=== PATIENT | female | born 1955 | race Hispanic/Latino ===

== ENCOUNTER 2018-09-10 11:06 | Outpatient (CLI) | payer OTHER | END 2018-09-10 11:07 | disposition home or self-care (01) | LOC: BICMAMMO 11:06 | PROVIDERS: ATTEND Family Medicine | DX: Z12.31 Encounter for screening mammogram for malignant neoplasm of breast (principal) | CPT/HCPCS: 77063; 77067 ==

== ENCOUNTER 2024-12-24 07:19 | Emergency (ER) | payer OTHER ==
[2024-12-24 08:12] LABS: #Basophils Less than 0.03 10x3/uL (0.0-0.2); #Eosinophils Less than 0.03 10x3/uL (0.0-0.7); %Basophils 0.1 % (0.0-1.0); %Eosinophils 0.1 % (0.0-10.0); %Lymphocytes 7.3 % (21.0-51.0); %Neutrophils 88.3 % (42.0-75.0); Hemoglobin 9.2 g/dL (12.0-16.0); Mean Corpuscular HGB CONC 32.9 g/dL (32.0-36.0); Mean Corpuscular Hemoglobin 30.2 pg (27.0-31.0); Mean Corpuscular Volume 91.8 fL (78.0-98.0); Mean Platelet Volume 10.5 fL (7.4-10.4); Platelet Count 133 10x3/uL (130-400); RBC Distribution Width 14.3 % (11.5-14.5); Red Blood Cell (RBC) Count 3.05 mill/uL (4.20-5.40)
[2024-12-24 09:01] LABS: ALT (SGPT) 23 U/L (Less than 34); AST (SGOT) 35 U/L (11-34); Albumin 3.4 g/dL (3.1-4.5); Alkaline Phosphatase 116 U/L (40-110); Anion Gap 17 mmol/L (10-20); BUN (Urea Nitrogen) 49 mg/dL (9.8-20.1); Bilirubin, Total 0.6 mg/dL (0.3-1.2); Calc. Creatinine Clearance 0 mL/min (70-130); Calcium 8.9 mg/dL (7.8-10.44); Carbon Dioxide 18 mmol/L (23-31); Chloride 109 mmol/L (98-107); Estimated GFR 30; Globulin 3.7 g/dL (2.4-3.5); Glucose 304 mg/dL (80-115); Potassium 5.6 mmol/L (3.5-5.1); Protein, Total 7.1 g/dL (5.8-8.1); Sodium 138 mmol/L (136-145)
[2024-12-24] MEDS ORDERED: LOKELMA 10 GM PACKET PO SCH (10:45)
== END 2024-12-24 12:29 | disposition home or self-care (01) ==
LOC: ERS 07:19
DX: K92.0 Hematemesis (principal); R05.9 Cough, unspecified; E11.9 Type 2 diabetes mellitus without complications; E78.5 Hyperlipidemia, unspecified; I10 Essential (primary) hypertension; E03.9 Hypothyroidism, unspecified; Z79.84 Long term (current) use of oral hypoglycemic drugs; Z79.890 Hormone replacement therapy; Z79.899 Other long term (current) drug therapy
CPT/HCPCS: 74177; 80053; 85025; 93005; 96360

== ENCOUNTER 2025-06-05 11:35 | Inpatient (IN) | payer OTHER ==
[2025-06-05 12:48] LABS: Bacteria/HPF 2+ HPF (None Seen); CAUTI Indications for Culture Pelvic or flank pain; Glucose, Urine (Dipstick) Normal (Negative); Leukocyte 500 Leu/uL (Negative); Protein, Urine (Dipstick) 30 mg/dL (Neg-Trace); Specific Gravity, Urine 1.024 (1.002-1.036); WBC/HPF Greater than 50 HPF (0-3); Yeast-Budding 2+ HPF (None Seen)
[2025-06-05 12:49] LABS: Urine Culture Reflex Yes Yes
[2025-06-05] MEDS ORDERED: cefTRIAXone (ROCEPHIN) 1 GM VIAL ONE (13:10)
[2025-06-05 13:36] LABS: #Basophils Less than 0.03 10x3/uL (0.0-0.2); #Eosinophils 0.19 10x3/uL (0.0-0.7); #Monocytes 0.51 10x3/uL (0.11-0.59); #Neutrophils 4.33 10x3/uL (1.40-6.50); %Basophils 0.2 % (0.0-1.0); %Eosinophils 3.1 % (0.0-10.0); %Lymphocytes 17.5 % (21.0-51.0); %Monocytes 8.3 % (0.0-10.0); %Neutrophils 70.6 % (42.0-75.0); Hematocrit 34.1 % (36.0-47.0); Hemoglobin 11.7 g/dL (12.0-16.0); Mean Corpuscular Hemoglobin 30.8 pg (27.0-31.0); Mean Corpuscular Volume 89.7 fL (78.0-98.0); Platelet Count 116 10x3/uL (130-400); Red Blood Cell (RBC) Count 3.80 mill/uL (4.20-5.40); White Blood Cell (WBC) Count 6.13 10x3/uL (4.8-10.8)
[2025-06-05 13:44] LABS: INR-International Normal Ratio 1.2; Prothrombin Time 15.0 sec (12.0-14.7)
[2025-06-05 13:45] LABS: PTT 33.2 sec (22.9-36.1)
[2025-06-05 13:58] LABS: Troponin I Less than 0.010 ng/mL (< 0.028)
[2025-06-05 14:19] LABS: ALT (SGPT) 45 U/L (Less than 34); AST (SGOT) 65 U/L (11-34); Albumin 3.6 g/dL (3.1-4.5); Alkaline Phosphatase 247 U/L (40-110); Anion Gap 15 mmol/L (10-20); BUN (Urea Nitrogen) 25 mg/dL (9.8-20.1); Bilirubin, Total 1.2 mg/dL (0.3-1.2); Calc. Creatinine Clearance 0 mL/min (70-130); Calcium 8.8 mg/dL (7.8-10.44); Carbon Dioxide 21 mmol/L (23-31); Chloride 112 mmol/L (98-107); Globulin 4.1 g/dL (2.4-3.5); Glucose 67 mg/dL (80-115); Lipase 45 U/L (8-78); Potassium 4.9 mmol/L (3.5-5.1); Sodium 143 mmol/L (136-145)
[2025-06-05] MEDS ORDERED: Furosemide 40 MG (4 mL) VIAL ONE (15:37)
[2025-06-05 17:12] VITALS: BMI 34.7
[2025-06-05] MEDS ORDERED: Ondansetron PF 4 MG/2 ML Vial IVP PRN (18:06)
[2025-06-05] MEDS ORDERED: Acetaminophen 500 MG TAB PO PRN (18:06)
[2025-06-05] MEDS ORDERED: Glucagon 1 MG/ML KIT IM PRN (18:06)
[2025-06-05] MEDS ORDERED: Dextrose 50% Abboject 50 ML SYRINGE SLOW IVP PRN (18:06)
[2025-06-05] MEDS: Furosemide 20 MG (2 mL) VIAL SLOW IVP SCH (19:38)
[2025-06-05] MEDS: Albumin 25% 25 GM (100 mL) BOT IVPB SCH ×2 (19:39→23:31)
[2025-06-05] MEDS: Spironolactone 25 MG TAB PO SCH (19:39)
[2025-06-06] MEDS: Furosemide 20 MG (2 mL) VIAL SLOW IVP SCH (05:15)
[2025-06-06] MEDS: Spironolactone 25 MG TAB PO SCH (08:57)
[2025-06-06] MEDS: Pantoprazole 40 MG VIAL IVP SCH (08:58)
[2025-06-06] MEDS ORDERED: Lidocaine 1% w/Epinephrine 1:100K 20 ML VIAL ONE (09:41)
[2025-06-06] MEDS ORDERED: Sodium Bicarbonate 2.5 MEQ/5 ML SDV ONE (09:41)
[2025-06-06] MEDS ORDERED: Lidocaine 1% PF 5 ML VIAL ONE (09:41)
[2025-06-06] MEDS: cefTRIAXone\\ROCEPHIN 1 GM in Sodium Chloride 0.9% 100 ML IVPB SCH (12:57)
[2025-06-06] MEDS ORDERED: Non-Formulary Item 1 EACH (Nifedipine [Nifedipine Er] 30 MG Tablet.Er) PO SCH (13:30)
[2025-06-06] MEDS: PNEUMOC 20-VAL CONJ-DIP CRM/PF 0.5 ML SYRINGE IM ONE (13:42)
[2025-06-06 14:03] LABS: RBC Count-Automated (BF) 382 /cu.mm; WBC/Nucleated-Auto (BF) 206 /cu.mm
[2025-06-06 14:26] LABS: BF Segmented Neutrophils 2 %; Cell Count Non Hematic 22 %
[2025-06-06] MEDS: NIFEdipine XL 30 MG ER.TAB PO SCH (14:42)
[2025-06-06 14:53] LABS: #Basophils Less than 0.03 10x3/uL (0.0-0.2); #Eosinophils 0.08 10x3/uL (0.0-0.7); #Monocytes 0.33 10x3/uL (0.11-0.59); #Neutrophils 2.42 10x3/uL (1.40-6.50); %Basophils 0.3 % (0.0-1.0); %Eosinophils 2.3 % (0.0-10.0); %Lymphocytes 18.1 % (21.0-51.0); %Monocytes 9.5 % (0.0-10.0); %Neutrophils 69.5 % (42.0-75.0); Hematocrit 30.7 % (36.0-47.0); Hemoglobin 10.2 g/dL (12.0-16.0); Mean Corpuscular Hemoglobin 30.4 pg (27.0-31.0); Mean Corpuscular Volume 91.4 fL (78.0-98.0); Platelet Count 78 10x3/uL (130-400); Red Blood Cell (RBC) Count 3.36 mill/uL (4.20-5.40); White Blood Cell (WBC) Count 3.48 10x3/uL (4.8-10.8)
[2025-06-06 15:06] LABS: ALT (SGPT) 32 U/L (Less than 34); AST (SGOT) 39 U/L (11-34); Albumin 4.4 g/dL (3.1-4.5); Alkaline Phosphatase 192 U/L (40-110); Anion Gap 17 mmol/L (10-20); BUN (Urea Nitrogen) 21 mg/dL (9.8-20.1); Bilirubin, Total 1.3 mg/dL (0.3-1.2); Calc. Creatinine Clearance 43 mL/min (70-130); Calcium 9.1 mg/dL (7.8-10.44); Carbon Dioxide 24 mmol/L (23-31); Chloride 106 mmol/L (98-107); Globulin 3.1 g/dL (2.4-3.5); Glucose 136 mg/dL (80-115); Potassium 3.9 mmol/L (3.5-5.1); Sodium 143 mmol/L (136-145)
[2025-06-06 15:30] LABS: Ovalocytes SLIGHT = 2-5 cells HPF (0-1); Platelet Adequacy Comment Platelets Decreased; Polychromasia MODERATE = 3-4 cells HPF (0-2)
[2025-06-06] MEDS: Nadolol 40 MG TAB PO SCH (17:04)
[2025-06-06] MEDS ORDERED: NIFEdipine XL 30 MG ER.TAB PO SCH (21:00)
[2025-06-06] MEDS ORDERED: Nadolol 40 MG TAB PO SCH (21:00)
[2025-06-06] MEDS ORDERED: Simvastatin 20 MG TAB PO SCH (21:00)
[2025-06-06] MEDS ORDERED: Non-Formulary Item 1 EACH (Nadolol [Nadolol] 20 MG Tablet) PO SCH (21:00)
[2025-06-07 05:16] LABS: #Basophils Less than 0.03 10x3/uL (0.0-0.2); #Eosinophils 0.11 10x3/uL (0.0-0.7); #Monocytes 0.35 10x3/uL (0.11-0.59); #Neutrophils 2.65 10x3/uL (1.40-6.50); %Basophils 0.3 % (0.0-1.0); %Eosinophils 2.9 % (0.0-10.0); %Lymphocytes 18.5 % (21.0-51.0); %Monocytes 9.1 % (0.0-10.0); %Neutrophils 68.9 % (42.0-75.0); Hematocrit 29.9 % (36.0-47.0); Hemoglobin 10.0 g/dL (12.0-16.0); Mean Corpuscular Hemoglobin 30.4 pg (27.0-31.0); Mean Corpuscular Volume 90.9 fL (78.0-98.0); Platelet Count 80 10x3/uL (130-400); Red Blood Cell (RBC) Count 3.29 mill/uL (4.20-5.40); White Blood Cell (WBC) Count 3.84 10x3/uL (4.8-10.8)
[2025-06-07 05:34] LABS: Anion Gap 14 mmol/L (10-20); BUN (Urea Nitrogen) 22 mg/dL (9.8-20.1); Calc. Creatinine Clearance 38 mL/min (70-130); Calcium 8.6 mg/dL (7.8-10.44); Carbon Dioxide 27 mmol/L (23-31); Chloride 105 mmol/L (98-107); Glucose 115 mg/dL (80-115); Potassium 3.6 mmol/L (3.5-5.1); Sodium 142 mmol/L (136-145)
[2025-06-07] MEDS ORDERED: Non-Formulary Item 1 EACH (Levothyroxine Sodium [Synthroid] 137 MCG Tablet) PO SCH (09:00)
[2025-06-07] MEDS: Pantoprazole 40 MG DR.TAB PO SCH (09:55)
[2025-06-07] MEDS: NIFEdipine XL 30 MG ER.TAB PO SCH (20:36)
[2025-06-07] MEDS: Nadolol 40 MG TAB PO SCH (20:36)
[2025-06-08 03:36] VITALS: TEMP 98.2
[2025-06-08 06:50] LABS: Anion Gap 14 mmol/L (10-20); BUN (Urea Nitrogen) 30 mg/dL (9.8-20.1); Calc. Creatinine Clearance 33 mL/min (70-130); Calcium 8.6 mg/dL (7.8-10.44); Carbon Dioxide 27 mmol/L (23-31); Chloride 105 mmol/L (98-107); Glucose 130 mg/dL (80-115); Potassium 3.6 mmol/L (3.5-5.1); Sodium 142 mmol/L (136-145)
[2025-06-08 08:15] VITALS: BP 153/71
== END 2025-06-08 12:34 | disposition home or self-care (01) | DRG 433 ==
LOC: ERS 11:35 → UNDOADMOB 15:28 → OBS 15:28 → INTOOBSV 18:06 → OBSVTOIN 18:06 → UNDODISIN 06-08 12:34
PROVIDERS: ADMIT Family Medicine; ATTEND Family Medicine
PROC: 0W9G3ZZ Drainage of Peritoneal Cavity, Percutaneous Approach (ICD-10-PCS; principal; 2025-06-06)
PROC: 3E03329 Introduction of Other Anti-infective into Peripheral Vein, Percutaneous Approach (ICD-10-PCS; 2025-06-06)
DX: K74.60 Unspecified cirrhosis of liver (principal); N17.9 Acute kidney failure, unspecified; N39.0 Urinary tract infection, site not specified; R18.8 Other ascites; K75.81 Nonalcoholic steatohepatitis (NASH); R16.1 Splenomegaly, not elsewhere classified; E78.5 Hyperlipidemia, unspecified; N18.30 Chronic kidney disease, stage 3 unspecified; I12.9 Hypertensive chronic kidney disease with stage 1 through stage 4 chronic kidney disease, or unspecified chronic kidney disease; D63.1 Anemia in chronic kidney disease; D69.6 Thrombocytopenia, unspecified; E87.70 Fluid overload, unspecified; R74.01 Elevation of levels of liver transaminase levels; E11.21 Type 2 diabetes mellitus with diabetic nephropathy; E11.22 Type 2 diabetes mellitus with diabetic chronic kidney disease; E03.9 Hypothyroidism, unspecified; Z98.890 Other specified postprocedural states; Z79.890 Hormone replacement therapy; Z79.899 Other long term (current) drug therapy
CPT/HCPCS: 36415; 36416; 49083; 74176; 76705; 80048; 80053; 81001; 82042; 82105; 83605; 83690; 83880; 84157; 84484; 85025; 85060; 85610; 85730; 87070; 87086; 87205; 88112; 88305; 89051; 93005; 93306; 96365; 96375; G0378; J0696; J1815; J1940; J2470; P9047

== ENCOUNTER 2025-06-17 08:26 | Inpatient (IN) | payer OTHER ==
[2025-06-17] MEDS ORDERED: Ketorolac Tromethamine 30 MG (1 mL) VIAL ONE (09:07)
[2025-06-17 09:33] LABS: ALT (SGPT) 49 U/L (Less than 34); AST (SGOT) 47 U/L (11-34); Albumin 4.3 g/dL (3.1-4.5); Alkaline Phosphatase 217 U/L (40-110); Anion Gap 15 mmol/L (10-20); BUN (Urea Nitrogen) 35 mg/dL (9.8-20.1); Bilirubin, Total 1.5 mg/dL (0.3-1.2); Calc. Creatinine Clearance 0 mL/min (70-130); Calcium 9.4 mg/dL (7.8-10.44); Carbon Dioxide 23 mmol/L (23-31); Chloride 108 mmol/L (98-107); Globulin 3.0 g/dL (2.4-3.5); Glucose 96 mg/dL (80-115); Potassium 4.1 mmol/L (3.5-5.1); Sodium 142 mmol/L (136-145)
[2025-06-17 10:02] LABS: Burr Cells MODERATE= 6-15 cells HPF (0-1); Macrocytosis SLIGHT = 6-15 cells HPF (0-5); Ovalocytes SLIGHT = 2-5 cells HPF (0-1); Platelet Adequacy Comment Platelets Decreased; Polychromasia SLIGHT = 2-3 cells HPF (0-2); Smudge Cells 1.0 %
[2025-06-17 10:09] LABS: Hematocrit 35.2 % (36.0-47.0); Hemoglobin 11.8 g/dL (12.0-16.0); Mean Corpuscular Hemoglobin 29.9 pg (27.0-31.0); Mean Corpuscular Volume 89.1 fL (78.0-98.0); Platelet Count 105 10x3/uL (130-400); Red Blood Cell (RBC) Count 3.95 mill/uL (4.20-5.40); White Blood Cell (WBC) Count 9.05 10x3/uL (4.8-10.8)
[2025-06-17] MEDS ORDERED: [UNRECOGNIZED DRUG - REMARK] FS SCH (10:15)
[2025-06-17 10:40] LABS: INR-International Normal Ratio 1.3; Prothrombin Time 16.3 sec (12.0-14.7)
[2025-06-17 10:41] LABS: PTT 33.2 sec (22.9-36.1)
[2025-06-17] MEDS ORDERED: PROPOFOL 20 ML ONE (11:18)
[2025-06-17] MEDS ORDERED: Rocuronium Bromide 10 MG/ML (10ML VIAL) ONE ×2 (11:18→12:10)
[2025-06-17] MEDS ORDERED: Lidocaine 1% PF 5 ML VIAL ONE (11:18)
[2025-06-17] MEDS ORDERED: fentaNYL PF 100 MCG/2 ML SYRINGE ONE (12:10)
[2025-06-17] MEDS ORDERED: Lidocaine 2% 6 ML (Jelly) SYR ONE (12:13)
[2025-06-17] MEDS ORDERED: PHENYLEPHRINE-NS 100 MCG/ML 10 ML SYRINGE ONE (12:14)
[2025-06-17] MEDS ORDERED: CEFAZOLIN 1 GM VIAL ONE (13:11)
[2025-06-17] MEDS ORDERED: Glycopyrrolate 0.2 MG/ML 5 ML SYRINGE ONE (13:21)
[2025-06-17] MEDS ORDERED: SUGAMMADEX SODIUM 200 MG/2 ML VIAL ONE (14:13)
[2025-06-17] MEDS ORDERED: Dextrose 50% Abboject 50 ML SYRINGE SLOW IVP PRN (15:40)
[2025-06-17] MEDS ORDERED: Glucagon 1 MG/ML KIT IM PRN (15:40)
[2025-06-17] MEDS: Methocarbamol 500 MG TAB PO PRN (17:26)
[2025-06-17] MEDS: TETANUS, DIPHTHERIA TOX,ADULT (TDVAX) 0.5 ML VIAL IM ONE (17:27)
[2025-06-17 17:28] VITALS: BMI 29.6
[2025-06-17] MEDS: NIFEdipine XL 30 MG ER.TAB PO SCH (21:35)
[2025-06-17] MEDS: Pantoprazole 40 MG DR.TAB PO SCH (21:36)
[2025-06-17] MEDS: Spironolactone 25 MG TAB PO SCH (21:38)
[2025-06-17] MEDS: HYDROcodone/Acetaminophen 5/325 mg Tablet PO PRN (21:39)
[2025-06-17] MEDS: Nadolol 40 MG TAB PO SCH (21:50)
[2025-06-18 05:06] LABS: #Basophils Less than 0.03 10x3/uL (0.0-0.2); #Eosinophils Less than 0.03 10x3/uL (0.0-0.7); #Monocytes 0.67 10x3/uL (0.11-0.59); #Neutrophils 7.90 10x3/uL (1.40-6.50); %Basophils 0.1 % (0.0-1.0); %Eosinophils 0.0 % (0.0-10.0); %Lymphocytes 7.8 % (21.0-51.0); %Monocytes 7.2 % (0.0-10.0); %Neutrophils 84.4 % (42.0-75.0); Hematocrit 27.6 % (36.0-47.0); Hemoglobin 9.1 g/dL (12.0-16.0); Mean Corpuscular Hemoglobin 30.4 pg (27.0-31.0); Mean Corpuscular Volume 92.3 fL (78.0-98.0); Platelet Count 110 10x3/uL (130-400); Red Blood Cell (RBC) Count 2.99 mill/uL (4.20-5.40); White Blood Cell (WBC) Count 9.36 10x3/uL (4.8-10.8)
[2025-06-18 05:08] LABS: Anion Gap 17 mmol/L (10-20); BUN (Urea Nitrogen) 44 mg/dL (9.8-20.1); Calc. Creatinine Clearance 32 mL/min (70-130); Calcium 8.5 mg/dL (7.8-10.44); Carbon Dioxide 18 mmol/L (23-31); Chloride 107 mmol/L (98-107); Glucose 157 mg/dL (80-115); Potassium 4.9 mmol/L (3.5-5.1); Sodium 137 mmol/L (136-145)
[2025-06-18] MEDS ORDERED: Non-Formulary Item 1 EACH (Levothyroxine Sodium [Synthroid] 137 MCG Tablet) PO SCH (09:00)
[2025-06-18] MEDS: Ondansetron PF 4 MG/2 ML Vial IVP PRN (09:10)
[2025-06-18] MEDS: Aspirin 81 mg Enteric Coated Tablet PO SCH (09:10)
[2025-06-18] MEDS: Furosemide 20 MG TAB PO SCH (09:10)
[2025-06-19 08:10] LABS: Hematocrit 23.5 % (36.0-47.0); Hemoglobin 7.9 g/dL (12.0-16.0); Mean Corpuscular Hemoglobin 31.3 pg (27.0-31.0); Mean Corpuscular Volume 93.3 fL (78.0-98.0); Platelet Count 83 10x3/uL (130-400); Red Blood Cell (RBC) Count 2.52 mill/uL (4.20-5.40); White Blood Cell (WBC) Count 7.76 10x3/uL (4.8-10.8)
[2025-06-19] MEDS: Aspirin 81 mg Enteric Coated Tablet PO SCH (08:20)
[2025-06-19 08:24] LABS: Anion Gap 12 mmol/L (10-20); BUN (Urea Nitrogen) 50 mg/dL (9.8-20.1); Calc. Creatinine Clearance 28 mL/min (70-130); Calcium 8.2 mg/dL (7.8-10.44); Carbon Dioxide 20 mmol/L (23-31); Chloride 106 mmol/L (98-107); Glucose 175 mg/dL (80-115); Potassium 4.3 mmol/L (3.5-5.1); Sodium 134 mmol/L (136-145)
[2025-06-19 08:32] LABS: Macrocytosis SLIGHT = 6-15 cells HPF (0-5); Platelet Adequacy Comment Platelets Decreased; Polychromasia MODERATE = 3-4 cells HPF (0-2); RBC Morphology Within Normal Limits
[2025-06-19 08:33] LABS: #Basophils Less than 0.03 10x3/uL (0.0-0.2); #Eosinophils 0.09 10x3/uL (0.0-0.7); #Monocytes 0.75 10x3/uL (0.11-0.59); #Neutrophils 5.82 10x3/uL (1.40-6.50); %Basophils 0.3 % (0.0-1.0); %Eosinophils 1.3 % (0.0-10.0); %Lymphocytes 13.8 % (21.0-51.0); %Monocytes 9.7 % (0.0-10.0); %Neutrophils 74.7 % (42.0-75.0)
[2025-06-20 08:28] LABS: #Basophils Less than 0.03 10x3/uL (0.0-0.2); #Eosinophils 0.14 10x3/uL (0.0-0.7); #Monocytes 0.66 10x3/uL (0.11-0.59); #Neutrophils 4.29 10x3/uL (1.40-6.50); %Basophils 0.2 % (0.0-1.0); %Eosinophils 2.3 % (0.0-10.0); %Lymphocytes 17.4 % (21.0-51.0); %Monocytes 10.6 % (0.0-10.0); %Neutrophils 69.2 % (42.0-75.0); Hematocrit 23.9 % (36.0-47.0); Hemoglobin 7.6 g/dL (12.0-16.0); Mean Corpuscular Hemoglobin 29.7 pg (27.0-31.0); Mean Corpuscular Volume 93.4 fL (78.0-98.0); Platelet Count 84 10x3/uL (130-400); Red Blood Cell (RBC) Count 2.56 mill/uL (4.20-5.40); White Blood Cell (WBC) Count 6.20 10x3/uL (4.8-10.8)
[2025-06-20] MEDS: Senokot S 8.6-50 MG TAB PO SCH (08:40)
[2025-06-20 08:41] LABS: Anion Gap 12 mmol/L (10-20); BUN (Urea Nitrogen) 45 mg/dL (9.8-20.1); Calc. Creatinine Clearance 33 mL/min (70-130); Calcium 8.2 mg/dL (7.8-10.44); Carbon Dioxide 21 mmol/L (23-31); Chloride 108 mmol/L (98-107); Glucose 224 mg/dL (80-115); Potassium 4.2 mmol/L (3.5-5.1); Sodium 137 mmol/L (136-145)
[2025-06-20 10:13] LABS: Ovalocytes SLIGHT = 2-5 cells HPF (0-1); Platelet Adequacy Comment Platelets Decreased; Polychromasia SLIGHT = 2-3 cells HPF (0-2)
[2025-06-22] MEDS: Lactulose 20 GM (30 mL) UDCUP PO SCH (08:22)
[2025-06-22 11:27] LABS: #Basophils Less than 0.03 10x3/uL (0.0-0.2); #Eosinophils 0.20 10x3/uL (0.0-0.7); #Monocytes 0.66 10x3/uL (0.11-0.59); #Neutrophils 5.66 10x3/uL (1.40-6.50); %Basophils 0.3 % (0.0-1.0); %Eosinophils 2.7 % (0.0-10.0); %Lymphocytes 12.7 % (21.0-51.0); %Monocytes 8.8 % (0.0-10.0); %Neutrophils 75.1 % (42.0-75.0); Hematocrit 26.5 % (36.0-47.0); Hemoglobin 8.7 g/dL (12.0-16.0); Mean Corpuscular Hemoglobin 31.0 pg (27.0-31.0); Mean Corpuscular Volume 94.3 fL (78.0-98.0); Platelet Count 180 10x3/uL (130-400); Red Blood Cell (RBC) Count 2.81 mill/uL (4.20-5.40); White Blood Cell (WBC) Count 7.53 10x3/uL (4.8-10.8)
[2025-06-22 11:32] VITALS: BMI 29.6
[2025-06-22 12:18] LABS: ALT (SGPT) 9 U/L (Less than 34); AST (SGOT) 26 U/L (11-34); Albumin 3.2 g/dL (3.1-4.5); Alkaline Phosphatase 203 U/L (40-110); Anion Gap 16 mmol/L (10-20); BUN (Urea Nitrogen) 34 mg/dL (9.8-20.1); Bilirubin, Total 1.8 mg/dL (0.3-1.2); Calc. Creatinine Clearance 36 mL/min (70-130); Calcium 9.1 mg/dL (7.8-10.44); Carbon Dioxide 22 mmol/L (23-31); Chloride 105 mmol/L (98-107); Globulin 3.4 g/dL (2.4-3.5); Glucose 229 mg/dL (80-115); Potassium 4.5 mmol/L (3.5-5.1); Sodium 138 mmol/L (136-145)
[2025-06-22] MEDS: Bisacodyl 10 MG SUPP PR PRN (20:32)
[2025-06-22] MEDS: Acetaminophen 325 MG TAB PO PRN (20:33)
[2025-06-23 07:32] LABS: #Basophils Less than 0.03 10x3/uL (0.0-0.2); #Eosinophils 0.06 10x3/uL (0.0-0.7); #Monocytes 1.02 10x3/uL (0.11-0.59); #Neutrophils 7.69 10x3/uL (1.40-6.50); %Basophils 0.2 % (0.0-1.0); %Eosinophils 0.6 % (0.0-10.0); %Lymphocytes 11.1 % (21.0-51.0); %Monocytes 10.3 % (0.0-10.0); %Neutrophils 77.4 % (42.0-75.0); Hematocrit 25.7 % (36.0-47.0); Hemoglobin 8.3 g/dL (12.0-16.0); Mean Corpuscular Hemoglobin 30.9 pg (27.0-31.0); Mean Corpuscular Volume 95.5 fL (78.0-98.0); Platelet Count 147 10x3/uL (130-400); Red Blood Cell (RBC) Count 2.69 mill/uL (4.20-5.40); White Blood Cell (WBC) Count 9.93 10x3/uL (4.8-10.8)
[2025-06-23 07:48] LABS: ALT (SGPT) 7 U/L (Less than 34); AST (SGOT) 24 U/L (11-34); Albumin 3.1 g/dL (3.1-4.5); Alkaline Phosphatase 173 U/L (40-110); Anion Gap 15 mmol/L (10-20); BUN (Urea Nitrogen) 42 mg/dL (9.8-20.1); Bilirubin, Total 2.0 mg/dL (0.3-1.2); Calc. Creatinine Clearance 34 mL/min (70-130); Calcium 9.0 mg/dL (7.8-10.44); Carbon Dioxide 20 mmol/L (23-31); Chloride 106 mmol/L (98-107); Globulin 3.3 g/dL (2.4-3.5); Glucose 167 mg/dL (80-115); Potassium 4.5 mmol/L (3.5-5.1); Sodium 136 mmol/L (136-145)
[2025-06-23 11:20] VITALS: BP 148/61; TEMP 97.3
== END 2025-06-23 20:30 | disposition home health service (06) | DRG 522 ==
LOC: ERS 08:26 → SURG A 10:19
PROVIDERS: ADMIT Surgery Trauma Surgery; ATTEND Surgery Trauma Surgery
PROC: 0SRR0JA Replacement of Right Hip Joint, Femoral Surface with Synthetic Substitute, Uncemented, Open Approach (ICD-10-PCS; principal; 2025-06-17)
PROC: 3E03329 Introduction of Other Anti-infective into Peripheral Vein, Percutaneous Approach (ICD-10-PCS; 2025-06-17)
DX: S72.031A Displaced midcervical fracture of right femur, initial encounter for closed fracture (principal); N17.9 Acute kidney failure, unspecified; E03.9 Hypothyroidism, unspecified; N18.30 Chronic kidney disease, stage 3 unspecified; E78.5 Hyperlipidemia, unspecified; K74.60 Unspecified cirrhosis of liver; I12.9 Hypertensive chronic kidney disease with stage 1 through stage 4 chronic kidney disease, or unspecified chronic kidney disease; K76.0 Fatty (change of) liver, not elsewhere classified; W19.XXXA Unspecified fall, initial encounter; Z98.890 Other specified postprocedural states; Z79.85 Long-term (current) use of injectable non-insulin antidiabetic drugs; Z79.890 Hormone replacement therapy; Z79.84 Long term (current) use of oral hypoglycemic drugs; Z79.4 Long term (current) use of insulin; Z79.899 Other long term (current) drug therapy
CPT/HCPCS: 36415; 36416; 72170; 80048; 80053; 84484; 85025; 85610; 85730; 93005; 96374; 96375; 97139; C1713; C1776; G0390; J0665; J0690; J1100; J1815; J1885; J2270; J2405; J2704; J3010; J3373